=== PATIENT | female | born 2000 | race Caucasian/White ===

== ENCOUNTER 2024-01-15 14:54 | Emergency (ER) | payer BC ==
[~2024-01-15] VITALS: Ht 160 cm; Wt 72.7 kg
[2024-01-15 18:17] LABS: BASO % 0.3 % (0.0-2.0); EOS # 0.1 K/mm3 (0.0-0.7); GRAN # 6.4 K/mm3 (1.4-6.5); HEMATOCRIT 43.1 % (37.0-47.0); HEMOGLOBIN 15.5 g/dl (12.5-16.0); LYMPH # 2.2 K/mm3 (1.2-3.4); LYMPH % 23.2 % (20.0-51.0); MEAN CELL VOLUME 88 fl (80.0-100.0); MEAN CORPUSCULAR HEMOGLOBIN 32 pg (27-31); MEAN CORPUSCULAR HGB CONC 36 g/dl (33.0-37.0); MEAN PLATELET VOLUME 11.3 fl (7.4-10.4); MONO # 0.7 K/mm3 (0.1-0.6); MONO % 7.3 % (1.7-9.3); PLATELET COUNT 228 K/mm3 (130-400); REDCELL DISTRIBUTION WIDTH-CV 11.8 % (11.5-14.5)
[2024-01-15 18:37] LABS: ALBUMIN 4.1 g/dL (3.5-5.0); BILIRUBIN,TOTAL 0.7 mg/dL (0.2-1.2); C-REACTIVE PROTEIN 0.11 mg/dL (0.00-0.50); CALCIUM 9.9 mg/dL (8.4-10.2); CREATININE, serum 0.84 mg/dL (0.57-1.11); TOTAL PROTEIN 7.6 g/dl (6.2-8.1)
[2024-01-15 19:31] LABS: URINE APPEARANCE CLEAR (CLEAR/HAZY); URINE BLOOD NEGATIVE (NEGATIVE); URINE COLOR YELLOW (YELLOW); URINE GLUCOSE NEGATIVE (NEGATIVE); URINE KETONE 3+ (NEGATIVE); URINE NITRATE NEGATIVE (NEGATIVE); URINE PROTEIN(semi-quant) NEGATIVE (NEGATIVE); URINE UROBILINOGEN 0.2 E.U/dL (0.2-1.0)
[2024-01-15 20:27] VITALS: BP 118/67; PULSE 80; TEMP 98.3
[2024-01-15 22:26] LABS: COLLECTION METHOD CLEAN CATCH
== END 2024-01-15 20:27 | disposition home or self-care (01) ==
LOC: COL.ER 14:54
PROVIDERS: Nurse Practitioner
DX: K59.00 Constipation, unspecified (principal)